=== PATIENT | female | born 1990 | race Caucasian/White ===

== ENCOUNTER 2021-02-28 09:55 | Outpatient (CLI) | payer MEDICAID, SELFPAY ==
[2021-02-28 10:31] VITALS: BMI 48.2
[2021-02-28 10:37] VITALS: BP 119/67; PULSE 98; TEMP 36.3; O2SAT 97
[2021-02-28] MEDS: 0.9% Normal Saline 1,000 ML 500 ML IV (10:55)
[2021-02-28 11:31] LABS: Absolute Neutrophil Count 4.1 X10^3/uL (2.0-7.7); Basophil# 0.01 X10^3/uL; Basophil% 0.2 % (0-1); Hemoglobin 10.9 g/dL (12.0-15.0); Lymphocyte % 15.2 % (19-41); Mean Corp Hgb Conc 34.1 g/dL (32-36); Mean Corpuscular Hgb 27.4 pg (27.0-32.0); Mean Corpuscular Volume 80.4 fL (81-99); Mean Platelet Vol. 9.5 fl (6.2-12.0); Monocyte# 0.28 X10^3/uL; Monocyte% 5.3 % (0-10); NRBC Flagged by Analyzer 0 % (0-5); Neutrophil # 4.12 X10^3/uL (2.7-7.7); Neutrophil % 78.5 % (47-70); Platelet Count 206 K/mm3 (150-450); RBC Distribution Width CV 13.9 % (11.6-14.6); RBC Distribution Width SD 40.6 fl (35.1-43.9); Red Blood Count 3.98 M/mm3 (4.2-5.4); White Blood Count 5.3 K/mm3 (4.4-11.0)
[2021-02-28] MEDS: Ondansetron 4 MG/2 ML Vial IV (11:36)
[2021-02-28 12:11] LABS: ALB/GLOB Ratio 0.5 RATIO (0.9-2.4); AST(SGOT) 51 U/L (15-37); Alanine Aminotransfer ALT/SGPT 27 U/L (13-56); Alkaline Phosphatase 126 U/L (45-117); Anion Gap 9 (5-15); BUN 4 mg/dL (7-18); BUN/Creat Ratio 6.8 RATIO (10-20); Calcium,Total 8.3 mg/dL (8.5-10.1); Chloride 103 mmol/L (98-107); Creatinine, Serum 0.58 mg/dL (0.55-1.02); EST Glomerular Filtration Rate 128 mL/min (>60); Est Glom Filt Rate - Afr Amer 155 mL/min (>60); Estimated Creatinine Clearance 137.92 ml/min; Globulin 4.4 g/dL (2.2-4.2); Glucose 85 mg/dL (74-106); Potassium 3.4 mmol/L (3.5-5.1); Protein, Total 6.4 g/dL (6.4-8.2); Sodium Level 136 mmol/L (136-145)
--- NOTE | 2021-02-28 12:23 | OB.TRI.HP_ITS ---
HPI - General HPI Narrative RIC OGLESBY, is a 30 F who presents with N&V. Also reports decreased FM. PFSH [facility] Medical History (Updated 02/28/21 @ 12:[address] Mandy Sifuentes MD) Decreased movement Allergy/AdvReac Type Severity Reaction Status Date / Time Penicillins [PCN] AdvReac Rash Verified 02/28/21 10:43 NST FHR Rate Baby A Baseline: 135 Variability:: Moderate Accelerations:: 15 x 15 Decelerations:: Variable NST Reactive:: Yes Uterine Activity:: Quiet Assessment & Plan (1) Decreased movement: QUALIFIERS: Trimester: third trimester COMMENT: 36&2 PLAN: Decreased FM - reactive NST N&V - IV hydration. Labs reviewed. She low potassium and minimally elevated AST at 51. COVID positive - hydration as above. Advised by RN on concerning symptoms.
[2021-02-28] MEDS: Potassium Chloride 40 MEQ in 0.9% Normal Saline 1,000 ML 500 MEQ IV (13:13)
[2021-02-28 15:20] VITALS: BP 129/68; PULSE 95
[2021-02-28 15:46] VITALS: PULSE 95; TEMP 37.2; O2SAT 95
== END 2021-02-28 16:26 | disposition home or self-care (01) ==
LOC: WPOUT 10:00 → WP 10:04
PROVIDERS: Referring Provider Obstetrics & Gynecology; Visit Provider Obstetrics & Gynecology
DX: O36.8130 Decreased fetal movements, third trimester, not applicable or unspecified (principal); O36.8330 Maternal care for abnormalities of the fetal heart rate or rhythm, third trimester, not applicable or unspecified; O98.513 Other viral diseases complicating pregnancy, third trimester; U07.1 COVID-19; O99.893 Other specified diseases and conditions complicating puerperium; E87.6 Hypokalemia; Z3A.36 36 weeks gestation of pregnancy
CPT/HCPCS: 96361 ×2; 96365; 96366; 96375; 59025; 59050; 80053; 85025; 99218; J7030; J7040; G0378; J2405

== ENCOUNTER 2021-03-19 07:02 | Inpatient (IN) | payer MEDICAID, SELFPAY ==
[2021-03-19] VITALS (75 sets, daily range): BP systolic 93–153; BP diastolic 57–90; PULSE 69–138; RESP 16; TEMP 36.1–36.4; O2SAT 81–100; BMI 47.9
[2021-03-19] MEDS: Lactated Ringers 1,000 ML 50 ML IV (07:50)
--- NOTE | 2021-03-19 08:03 | PCM.HP.OB ---
HPI - General General Date of Admission: 03/19/21 HPI Narrative RIC OGLESBY, is a 30 F @ 39 weeks who presents for IOL due to obesity in Maternal Data Information Final ANITHA: 03/26/21 Final ANITHA Source: US <20 weeks Gestational age: 39 PFSH PFSH Medical History (Updated 03/19/21 @ 08:[address] Sona Marcos MD) 39 weeks gestation of Decreased movement depression Seizures Allergy/AdvReac Type Severity Reaction Status Date / Time Penicillins [PCN] Allergy Rash Verified 03/19/21 07:37 Social History Smoking Status: Never smoker History Elective abortions Hx Para 3 Spontaneous abortions Hx # Term Pregnancies Ectopic pregnancies Hx # Pregnancies Multiple births # of living children NST FHR Rate Baby A Baseline: 145 Variability:: Moderate Accelerations:: 15 x 15 Decelerations:: None NST Reactive:: Yes FHR Category:: Category I Uterine Activity:: occasional Vital Signs Vital Signs Vital Signs: Weight Weight: 138.799 kg Body Mass Index (BMI) 47.9 Physical Exam Narrative AROM attempted but no fluid noted- will recheck and reattempt later today if no signs of ROM prior. Const alert and oriented x3 General Appearance: cooperative HEENT normocephalic GI GI Narrative: Gravid, non tender to palpation. OB / External & Speculum: external exam normal Extremity normal to inspection Skin no rashes or lesions noted Neuro oriented x3 and CN's II-XII intact bilaterally Psych Appearance: grossly normal Labs Labs Labs: Blood Type Pending Antibody Screen Pending Hct 32.0 % (37-47) L Hgb 10.9 g/dL (12.0-15.0) L Assessment & Plan (1) Obesity affecting in third trimester: (2) 39 weeks gestation of : PLAN: Admit to L&D Montior FHR/TOCO Epidural if requested for pain Monitor VS Anticipate pitcoin IOL Vancomycin for GBS
[2021-03-19 08:08] LABS: Absolute Lymphocyte Count 1.79 X10^3/uL (0.83-4.51); Absolute Neutrophil Count 7.3 X10^3/uL (2.0-7.7); Basophil# 0.04 X10^3/uL; Basophil% 0.4 % (0-1); Hematocrit 33.8 % (37-47); Hemoglobin 11.3 g/dL (12.0-15.0); Lymphocyte # 1.79 X10^3/ul (0.83-4.51); Lymphocyte % 17.8 % (19-41); Mean Corp Hgb Conc 33.4 g/dL (32-36); Mean Corpuscular Hgb 26.8 pg (27.0-32.0); Mean Corpuscular Volume 80.1 fL (81-99); Mean Platelet Vol. 9.6 fl (6.2-12.0); Monocyte# 0.69 X10^3/uL; Monocyte% 6.9 % (0-10); NRBC Flagged by Analyzer 0 % (0-5); Neutrophil # 7.27 X10^3/uL (2.7-7.7); Neutrophil % 72.3 % (47-70); Platelet Count 301 K/mm3 (150-450); RBC Distribution Width CV 14.5 % (11.6-14.6); RBC Distribution Width SD 41.4 fl (35.1-43.9); Red Blood Count 4.22 M/mm3 (4.2-5.4); White Blood Count 10.1 K/mm3 (4.4-11.0)
[2021-03-19] MEDS: Oxytocin 30 units/NS 500 ml 30 UNITS/500 ML IV.SOLN IV (08:49)
[2021-03-19] MEDS: Lactated Ringers 500 ML 999 ML IV (10:30)
[2021-03-19] MEDS: fentaNYL-bupivacaine (epidural) 100 ML BAG EPIDURAL (12:15)
--- NOTE | 2021-03-19 12:44 | PCM.PN.BLA ---
Progress Note Pt seen at bedside, comfortable with epidural. VE: -2 AROM performed- Clear fluid. IFM and IUPC placed. Continue pitocin. FHR Cat1.
[2021-03-19] MEDS: Oxytocin 30 units/NS 500 ml 30 UNITS/500 ML IV.SOLN 334 UNITS IV (16:01)
[2021-03-19] MEDS: Methylergonovine 0.2 MG/ML Ampul IM (16:13)
--- NOTE | 2021-03-19 16:17 | EX.PCM.OBRPT ---
Assessment & Plan (1) Vaginal delivery: Maternal Data Information Final ANITHA: 03/26/21 Gestational age: 39 Vaginal Delivery Maternal Presentation Maternal Presentation: Medically Indicated Induction Maternal Presentation: Obesity in , 39 weeks gestation Type of Induction: Pitocin and Amniotomy Medical Reason for Induction: - (obesity BMI 47, 39 weeks gestation ) Operative Information Date of Procedure: 03/19/21 Pre-Operative Diagnosis: term gestation, obesity in , gbs+ Post-Operative Diagnosis: same, live female Surgery / Procedure Performed: Spontaneous Vaginal Delivery Type of Anesthesia: Epidural Drain: Vargas to straight drain Estimated Blood Loss: 350 Time of Delivery: 13:57 Findings Description of Procedure: Upon my arrival 's head was . At this time with good maternal pushing efforts the infant's head was delivered and with gentle downward traction and good maternal pushing efforts the rest the 's body was delivered without complication or delay. Infant was then vigorous at time of delivery and placed on the mother's chest for immediate skin to skin. Delayed cord clamping was performed. At this time the placenta was delivered spontaneously and intact. No vaginal lacerations were appreciated. There were episodes of brisk bleeding at this time the bed was broken down and fundal massage was continued. The fundus continued to be firm. At this time better evaluation was performed and no cervical lacerations were appreciated. No vaginal lacerations appreciated. She did have some clots in the lower uterine segment which were expelled. Methergine given IM in the left thigh. Bleeding slowed at this time. Presentation: Vertex Amniotic Membrane Rupture Type: Artificial Amniotic Fluid Description: Clear Placental Delivery Description: Spontaneous Placenta Disposition: [facility] Specimen(s) Removed: placenta Cord Vessel Description: 3 Vessels Cord Entanglement: None A Gender: Female (1 minute): 8 (5 minute): 9 Delayed Cord Clamping: Yes Post Vaginal Delivery Medications Given After Delivery: IV Pitocin and IM Methergin Episiotomy Description: None Laceration: None Complication Complications: None Admit VTE Documentation VTE Present on Admission: Yes VTE Mechan Device Prophylaxis: SCD's VTE Pharm Prophylaxis Ordered: No Reason Prophylaxis Not Ordered: Procedure Not Indicated
--- NOTE | 2021-03-19 18:00 | NURSING ---
Pt had post depression with first child 7 years ago. During labor pt had very flat affect and did not communicate much with nursing staff or significant other. Pt seems very distant and not willing to engage. Pt appropriate with baby but at times seems uninterested. Pt support person helpful at times but for the most part they do not communicate. Pt not responsive to questions and when she does answer the responses are very short. Pt denies that there is anything wrong.
[2021-03-20] VITALS (11 sets, daily range): BP systolic 115–130; BP diastolic 67–87; PULSE 67–229; RESP 16–17; TEMP 35.9–36.4; O2SAT 83–99
--- NOTE | 2021-03-20 08:16 | PCM.PN.OB ---
Subjective Subjective Patient seen at bedside. Denies any pain. Ambulating and voiding without difficulty. without difficulty. Lochia minimal. Denies SOB, CP, Headache or dizziness. Requesting discharge home today. Objective Data Objective Data Vital Signs: Vital Signs Temp Pulse Resp BP Pulse Ox 97.1 F L 229 H 16 118/77 83 03/20/21 04:10 03/20/21 08:03 03/20/21 04:10 03/20/21 08:01 03/20/21 08:03 Oxygen Delivery Method Room Air Weight: 306 lb Body Mass Index (BMI) 47.9 Intake & Output: Intake and Output for Last 24 Hours 03/18/21 03/19/21 03/20/21 23:59 23:59 23:59 Intake Total 2585.97 / 2585.97 Output Total 500 / 500 Balance 2085.97 / 2085.97 Lab / Micro Data Result Diagrams: 03/19/21 07:50 Labs: Laboratory Results - last 24 hr 03/19/21 07:50: WBC 10.1, RBC 4.22, Hgb 11.3 L, Hct 33.8 L, MCV 80.1 L, MCH 26.8 L, MCHC 33.4, RDW Std Deviation 41.4, RDW Coeff of Aviva 14.5, Plt Count 301, MPV 9.6, Immature Gran % (Auto) 0.600, Neut % (Auto) 72.3 H, Lymph % (Auto) 17.8 L, [place] % (Auto) 6.9, Eos % (Auto) 2.0, Baso % (Auto) 0.4, Absolute Neuts (auto) 7.3, Absolute Lymphs (auto) 1.79, Nucleated RBC % 0 03/19/21 07:50: Blood Type A POSITIVE, Antibody Screen NEGATIVE ROS Eyes Eyes: Denies blurry vision, change in vision or spots in vision ENT HEENT: Denies dizziness or headache(s) Cardiovascular Cardiovascular: Denies abdominal pain, chest pain or dyspnea Respiratory/Chest Respiratory/Chest: Denies cough, dyspnea, shortness of breath at rest or shortness of breath with exertion Gastrointestinal Gastrointestinal: Denies abdominal pain, diarrhea or vomiting Genitourinary Genitourinary: Denies change in urinary stream, difficulty urinating or dysuria Musculoskeletal Musculoskeletal: Reports none Integumentary Integumentary: Denies rash Neurologic Neurologic: Denies dizziness, headache(s), memory loss or weakness Physical Exam Const alert and no apparent distress General Appearance: cooperative and comfortable Exam Limitations: no limitations HEENT normocephalic Eyes General Eye: normal appearance of both eyes Neck full ROM General: normal visual inspection Chest Chest: symmetrical chest wall rise Resp normal respiratory effort and normal air movement Effort and Inspection: symmetric chest movement Auscultation: clear to auscultation bilaterally Cardio regular rate and regular rhythm GI normal to inspection, nondistended, normoactive bowel sounds Back/Spine normal ROM Extremity full ROM and no calf tenderness General Extremity: normal exam except as noted Skin no rashes or lesions noted Neuro CN's II-XII intact bilaterally Psych mental status grossly normal Assessment & Plan (1) Vaginal delivery: (2) Obesity affecting in third trimester: PLAN: PPD 1 - intact Routine care support Discharge home today with follow up in office
--- NOTE | 2021-03-20 08:19 | PCM.DC ---
Discharge Instructions Diet Discharge Diet: No restrictions Activity May resume sexual activity in: 6-8 weeks Weight Bearing Status: Weight bearing as tolerated Dressing / Incision Call your doctor if you observe: Fever of 101 or Higher, Inability to urinate, Using more than 1 pad per hour, Shortness of breath, Chest pain, Calf discomfort and Uncontrolled pain Follow Up Care When: 2 weeks virtual visit/ 6 weeks in office Test Results: Test results from this visit will be discussed in further detail at your follow-up appointment, if applicable. Discharge Plan Admission Admit Date/Time: 03/19/21 07:02 Primary Reason for Your Visit: Labor and delivery Attending Provider: Sona Marcos Discharge Orders/Prescriptions Prescriptions: No Action 1 tab PO/SL DAILY RF: 0 Disposition Disposition (needs filled in before D/C Order can be placed): Home, Self Care
--- NOTE | 2021-03-20 08:56 | NURSING ---
nursing instructed accompanied student nurse to do assessment and agree with her charting. student charting is used for educational and learning purposes.
--- NOTE | 2021-03-20 16:30 | CASEMGMT ---
Social Work Brief Assessment - Labor and Delivery Unit Patient Address: [facility] [address] [place] [address] Phone number: [phone] Date of Referral/Notification: 03.19.2021 Time of Referral: 1833 Referred By: Dr. Marcos Reason for Referral: maternal history of PPD Date of Intervention: 03.20.2021 Time of Intervention: 1630 Informant: Medical record and mother of baby (MOB) Destiny England; father of baby (FOB) Taj Hendricks present for part of conversation. History: MOB is a 30 year old single female, G3, P3 to 4 after delivering Benjamín Hendricks. MOB and FOB have been together for 2.5 years and now have 3 children together. MOB had one child from a prior relationship. The oldest child's father is not involved other than paying child support. Minor children include: Luisito (age 7), twins Darci and Tiffany (age 2), and Benjamín Hendricks (born 03.19.2021). FOB reports to have custody of his 12 year old daughter Soniya. FOB reports a 4 year old daughter who live out of town and FOB does not see. care started in the first trimester at 6 weeks and regular thereafter. Maternal history of PCOS. Delivery at 39 weeks. 8 and 9 at 1 and 5 minutes of life. Weight 7 pounds 7 ounces. MOB endorses depression after Luisito when MOB was isolated at home due to lack of a vehicle Reports this was short lived, and denies any history of suicidal ideations or attempts. Denies any PPD after the twins. Denies any substance use history or concerns. Maternal drug screen negative on 10.06.2020. MOB reports some college education. No issues with learning or comprehension. FOB works as a f[employer] and also has a elvi business ([employer]). Denies any children services history of legal concerns. Assessment: Met with MOB and FOB together and then with MOB alone. MOB denies any form of abuse or control in relationship with FOB. Identifies FOB as strongest support, but to have additional support from MOB's parents. Reports to have all needed supplies for baby. No concerns with transportation or housing. Reports to be aware of WIC and has used in the past, but not currently using. Reports to know how to access if needed. MOB reports to feel a connection to the baby. FOB will be home to help out as work is slower right now. Denies any concerns with home going. MOB cooperative with social work visit. Held normal eye contact. MOB vacillated from talkative to guarded, but remained cooperative and answered all questions. MOB voiced awareness of shaken baby prevention, safe sleeping, and understanding of need to seek out help and support should symptoms of arise. No voiced concerns about parent/child interactions or bonding. Plan: MOB and infatn to home. Provided community resource information for [facility] as well as resources for mood and anxiety disorders.. No further needs requested or indicated. -STEFANO Zamora, DIAMOND DRILLER
== END 2021-03-20 17:30 | disposition home or self-care (01) | DRG 560 ==
PROVIDERS: Obstetrics & Gynecology; Admitting Provider Obstetrics & Gynecology; Visit Provider Obstetrics & Gynecology
DX: O99.824 Streptococcus B carrier state complicating childbirth (principal); Z37.0 Single live birth; O99.214 Obesity complicating childbirth; Z3A.39 39 weeks gestation of pregnancy
CPT/HCPCS: 59025; 59050; 85025; 86850; 86900; 86901; 99218; J7040; J7120; G0378

== ENCOUNTER 2021-08-29 09:53 | Day surgery (SDC) | payer MEDICAID, SELFPAY ==
--- NOTE | 2021-06-26 10:28 | PCM.HP.BLA ---
History and Physical Date of Admission: 07/11/21 Pre-Op History and Physical ? HPI: The patient is a 30 year old female presenting for sterilization consultation. Pt has three children- youngest now 3.5months. pt does not desires future child bearing capabilities. Pt denies LARC. ? pre-operative visit. She is scheduled for bilateral salpingectomy , for Desires sterilization on 07/11/21. Procedure discussed along with risks, benefits and complications. Other alternatives discussed for management. Consent form signed? Yes. ? ? PAST MEDICAL HISTORY PAST MEDICAL HISTORY Diagnosis Date ? Chlamydia ? ? Depressive disorder, not elsewhere classified ? ? Esophageal reflux ? ? Other enthesopathy of ankle and tarsus 12/07/2007 ? PCOS (polycystic ovarian syndrome) ? ? depression ? ? Seizure (HCC) ? ? once as teen and as infant ? Trauma ? ? ? PAST SURGICAL HISTORY PAST SURGICAL HISTORY Procedure Laterality Date ? PAST SURGICAL HISTORY OF ? ? ? tubes placed inbilateral ears ? TONSILLECTOMY HX ? CURRENT MEDICATIONS No current outpatient medications on file. ? No current facility-administered medications for this visit. ? ? ALLERGIES: Augmentin [Amoxicillin-Pot Clavulanate], Cephalosporins, and Penicillins ? PERSONAL HISTORY: SOCIAL HISTORY Social History ? Tobacco Use ? Smoking status: Never Smoker ? Smokeless tobacco: Never Used Vaping Use ? Vaping Use: Never used Substance Use Topics ? Alcohol use: Not Currently ? ? Alcohol/week: 2.5 standard drinks ? ? Types: 1 Mixed Drinks per week ? Drug use: No ? FAMILY HISTORY: FAMILY HISTORY FAMILY HISTORY Problem Relation Age of Onset ? Allergies Mother ? ? Allergic rhinitis ? No Known Problems Father ? ? No Known Problems Sister ? ? Allergies Brother ? ? Allergic rhinitis ? No Known Problems Brother ? ? Cancer Maternal Grandmother ? ? Uterine ? No Known Problems Maternal Grandfather ? ? No Known Problems Paternal Grandmother ? ? No Known Problems Paternal Grandfather ? ? No Known Problems Son ? ? other (clifton tied) Son ? ? No Known Problems Daughter ? ? ? REVIEW OF SYMPTOMS: negative except as noted above PHYSICAL EXAMINATION: ? VITALS: Blood pressure 132/84, weight 300 lb (136.1 kg), last menstrual period 05/24/2020, currently . ? GENERAL: The patient is well nourished, well hydrated in no acute distress. , The patient is oriented to time, place, and person. NECK: full range of motion LUNGS: Clear to auscultation bilaterally. no wheezes, rhonchi or rales HEART: Regular rate and rhythm, Normal heart sounds and No murmurs or gallops ? IMPRESSION: desires sterilization ? PLAN: Laparoscopic Bilateral salpingectomy ? Pt has been counseled on risks/benefits and alternatives of surgery including but not limited to anesthesia, bleeding, infection, injury to pelvic structures including bowel, bladder, ureters and vessels. Pt wishes to proceed with surgery at this time. Risk of regret reviewed PRE AND POST OP Instructions reviewed ? Title 19 signed on 01/14 and again on 05/03/21 ? I have reviewed and updated past medical and surgical history, medications and allergies ? ? Sona Crook MD
[2021-07-11 07:42] VITALS: BP 139/73; PULSE 75; RESP 16; TEMP 36.6; O2SAT 96; BMI 47.4
[2021-07-11 07:54] LABS: Hematocrit 39.2 % (37-47); Hemoglobin 13.5 g/dL (12.0-15.0); Mean Corp Hgb Conc 34.4 g/dL (32-36); Mean Corpuscular Hgb 27.1 pg (27.0-32.0); Mean Corpuscular Volume 78.7 fL (81-99); Mean Platelet Vol. 9.2 fl (6.2-12.0); Platelet Count 304 K/mm3 (150-450); RBC Distribution Width CV 13.4 % (11.6-14.6); RBC Distribution Width SD 38.3 fl (35.1-43.9); Red Blood Count 4.98 M/mm3 (4.2-5.4); White Blood Count 5.6 K/mm3 (4.4-11.0)
[2021-07-11 08:02] LABS: Internal QC Validated? YES +Cl - CLEAR BKGD; Pregnancy, Urine Negative Negative
[2021-07-11] MEDS: Lactated Ringers 1,000 ML 15 ML IV (08:05)
[2021-07-11 08:12] LABS: Prothrombin Time (Protime)PT. 12.4 SECONDS (11.7-14.9)
[2021-07-11 08:13] LABS: Partial Thromboplast Time 29.9 Seconds (24.1-36.2)
[2021-07-11 08:14] LABS: AST(SGOT) 16 U/L (15-37); Alanine Aminotransfer ALT/SGPT 22 U/L (13-56); Albumin, Serum 3.7 g/dL (3.2-5.0); Alkaline Phosphatase 124 U/L (45-117); Bilirubin, Direct 0.12 mg/dL (0.00-0.30); Globulin 4.2 g/dL (2.2-4.2); Protein, Total 7.9 g/dL (6.4-8.2)
--- NOTE | 2021-07-11 08:14 | RAD_ITS ---
STUDY: X-RAY CHEST REASON FOR EXAM: Female, 30 years old. Preop abnormal chest sounds -- call dr de la paz with results [phone] TECHNIQUE: PA and lateral views of the chest. COMPARISON: None. FINDINGS: Focal infiltrate in the peripheral aspect of the left upper lobe. Mild increased markings at both lung bases. There is no demonstrated pleural abnormality. Normal size heart. Normal mediastinum and duane. Normal visualized pulmonary arteries. Normal visualized aortic arch and descending thoracic aorta. Normal visualized thoracic spine. Normal visualized ribs, clavicles, and shoulders. There is no demonstrated abnormality of the visualized soft tissue structures of the upper abdomen. RAD/Chest PA and Lateral IMPRESSION: Focal infiltrate in the lateral aspect of the left upper lobe with mild increased markings at both lung bases. Electronically Signed: Nate Ni MD at 9:07 EDT ,
[2021-07-11] MEDS: Ipratropium/Albuterol Sulfate 3 ML AMPUL.NEB INHALATION (08:52)
[2021-08-29] VITALS (7 sets, daily range): BP systolic 101–139; BP diastolic 68–81; PULSE 58–74; RESP 16–20; TEMP 35.8–36.9; O2SAT 99–100; BMI 48.6
[2021-08-29] MEDS: Lactated Ringers 1,000 ML 150 ML IV (10:14)
[2021-08-29] MEDS: Ipratropium/Albuterol Sulfate 3 ML AMPUL.NEB INHALATION (10:33)
--- NOTE | 2021-08-29 10:44 | OP.PCM_ITS ---
Problems Associated Problem List Diagnoses (1) Obesity: (2) Encounter for sterilization: Report of Operation Date of Procedure: 08/29/21 Pre-Operative Diagnosis: sterilization request, Obesity Post-Operative Diagnosis: Same Surgery/Procedure Performed:: Laparoscopic Bilateral salpingectomy Description of Surgical Findings:: Normal tubes and ovaries bilaterally. No pelvic adhesions. uterus normal. Surgeon: Sona Marcos automatic nailing machine feeder: Cem Horowitz Type of Anesthesia: General and Local Special Medications: 0.5% marcaine Specimen's removed: Bilateral tubes Drains: none Estimated Blood Loss (mL): <5cc Fluids Replaced: 500 Description of Procedure: After informed consent was obtained patient was taken to the operating room she was placed in supine position she was given anesthesia. She was then placed in the [facility] stirrups and she was prepped and draped in normal sterile fashion. Bladder was drained prior to the start of procedure. At this time attention was turned to the vaginal portion where weighted speculum placed at posterior fornix vagina single-tooth tenaculum was used to gently grasp the internal the cervix. uterus was gently sounded to approximately cm. Uterine manipulator was placed without difficulty. Legs then placed in parallel with the abdomen the tenaculum and the weighted speculum were removed. 2 towel clamps were placed at level of umbilicus. Marcaine was injected infraumbilical and a small incision was made. The 5 mm trocar was placed under direct visualization. CO2 gas was used to insufflate the intra- abdominal cavity. Upon inspection no gross abnormalities appreciated- the uterus tubes and ovaries appeared to be normal. At this time then the LLQ and RLQ ports were placed First Marcaine was injected and small incision was made a knife and the 5 mm trocars were placed. At this time then tubes were traced back to the fimbriated ends. Enseal was used to coagulate and ligate along mesosalpinx bilaterally until tubes removed completely. Good hemostasis was appreciated. At this time procedure was deemed complete successful. The gas was desufflated on from the intra-abdominal cavity. The trochars were removed. Skin was closed using 4-0 Monocryl in a subcutaneous fashion. Dermabond glue was placed. Instrument lap and needle counts were correct ?2. The uterine manipulator was removed. Vaginal sweep was performed it was negative. There were no complications anticipated normal postoperative course for this patient. Orthopedically Impaired Teacher helped hold camera and manipulate tubes. Grafts/Implants Used: none Procedure Start Time: 11:15 Procedure Stop Time: 11:28 Complications none Admit VTE Documentation VTE Present on Admission: Yes VTE Mechan Device Prophylaxis: SCD's VTE Pharm Prophylaxis ordered?: No Reason prophylaxis not ordered:: Procedure Not Indicated
--- NOTE | 2021-08-29 10:44 | EX.PCM.DISCH ---
Discharge Instructions Procedure Other Diet Discharge Diet: No restrictions Activity May resume sexual activity in: 2 weeks Lifting Restrictions: 20-25 lbs Dressing / Incision Call your doctor if your incision/area has: Continuous Slow Oozing, Sudden Increased Bleeding, Increased Pain/ Swelling, Increased Redness, Foul Smelling Discharge and Swelling at the incision site Call your doctor if you observe: Fever of 101 or Higher, Inability to urinate, Inability to have a bowel movement, Using more than 1 pad per hour and Uncontrolled pain Additional Dressing/Incision Instructions:: You have skin glue over your incision sites, do not pick off. You may shower and let the soap and water run over the incision sites and dab dry. Follow Up Care Please Follow Up With: Sona Marcos MD When: 1-2 weeks post OP if you need an appointment please call [phone] Test Results: Test results from this visit will be discussed in further detail at your follow-up appointment, if applicable. Discharge Plan Admission Attending Provider: Sona Marcos Primary Care Provider: Care Physician,No Primary Discharge Orders/Prescriptions Prescriptions: No Action NK RF: 0 Other Ambulatory Orders: COVID 19 AG RAPID (RN COLLECT) (Routine) Timeframe: [id number] Facility: [facility] - Location: Laboratory Ordered By: Dr. Darrick Beltrán
[2021-08-29] MEDS: Bupivacaine Mpf 0.5% 30 ML VIAL (11:15)
--- NOTE | 2021-08-29 12:00 | FALS_PTH ---
PATIENT: RIC OGLESBY LOC: [facility] U#:[id number] AGE/SX: 30/F ROOM: RE08/29/[address]: Dr. Sona Marcos, MDDOB: 1990 BED: DIS: 08/29/2021 SPEC #: [id number] RECD: 08/29/21 13:16 STATUS: WAYNE JUDY #: [id number] ARTEM: 08/29/21 12:[address]: Sona Marcos DEPT: SURGICAL PATHOLOGY RECD BY: Katty James ENTERED: 08/29/21 13:48 SP TYPE: FALL TUBES OTHR DR: Kimberley Primary Care Phys Tissues: Fallopian tube Procedures: Surgery Specimen Level II HEADER OPERATION: Laparoscopic salpingectomy PRE-OP DIAGNOSIS: Sterilization TISSUE SUBMITTED: Bilateral fallopian tubes MICROSCOPIC DIAGNOSIS Right and left fallopian tubes, bilateral salpingectomies: Complete cross-sections of fallopian tubes with acute salpingitis. AM:senia 08/30/2021 MICROSCOPIC DESCRIPTION Slides are reviewed. GROSS DESCRIPTION Received in fixative is one container labeled with the patient's name and designated bilateral fallopian tubes. The specimen consists of bilateral fallopian tubes including fimbrial ends each measuring 6 cm in length and 0.5 cm in diameter. The fallopian tubes are not identified as right or left. Sections reveal unremarkable cut surfaces. Washing Machine Repairer sections are submitted in two cassettes with each cassette containing one fallopian tube. / KRIS:senia 08/29/2021 TC:2 CPT: 29423 x2
--- NOTE | 2021-08-29 14:05 | SUR.PHASEII ---
DR MENDOSA MADE AWARE ABOUT URINE NOT OBTAINED FOR PREG TEST.
== END 2021-08-29 12:31 | disposition home or self-care (01) ==
LOC: AC 09:56
PROVIDERS: Anesthesiology; Referring Provider Obstetrics & Gynecology; Visit Provider Obstetrics & Gynecology
PROC: (CPT 58661; principal; 2021-08-29 11:45)
DX: Z30.2 Encounter for sterilization (principal); Z68.42 Body mass index [BMI] 45.0-49.9, adult; E28.2 Polycystic ovarian syndrome; E66.9 Obesity, unspecified; N70.01 Acute salpingitis
CPT/HCPCS: 58661; 00840; J2405; 71046; 80076; 81025; 85027; 85610; 85730; 87426; 88302; 94640; J7120; C1760